=== PATIENT | male | born 1970 | race Asian ===

== ENCOUNTER 2020-12-20 18:04 | Emergency (ER) | payer OTHER, BC, SELFPAY ==
[2020-12-20 18:06] VITALS: BP 188/116; PULSE 82; RESP 16; TEMP 36.6; O2SAT 97; BMI 28.5
--- NOTE | 2020-12-20 18:08 | ED.RN ---
PT UNSURE IF HE WANTS TO FILE WORKMANS COMP AT THIS TIME.
--- NOTE | 2020-12-20 18:10 | ED.RN ---
PT REPORTS HE DOES WANT TO FILE WORKMAN'S COMP. 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 FROI INITIATED.
--- NOTE | 2020-12-20 18:18 | RAD_ITS ---
STUDY: X-RAY - RIGHT HAND REASON FOR EXAM: Male, 50 years old. Pain. Smashed distal middle finger. Bruising and swelling. TECHNIQUE: 3 view(s) of the hand. COMPARISON: None. FINDINGS: There is joint space narrowing of the radiocarpal articulation consistent with degenerative arthrosis. Normal distal radioulnar joint. Normal visualized carpal bones. 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 The remainder of the carpal articulations are normal. Normal carpometacarpal articulation of the thumb. Normal second through fifth carpometacarpal joints. Normal metacarpi. Normal metacarpophalangeal joint of the thumb. Normal interphalangeal joint of the thumb. Normal proximal and distal phalanges of the thumb. Normal metacarpophalangeal joints of the second through fifth fingers. Normal proximal and distal interphalangeal joints of the second through fifth fingers. Normal phalanges of the second through fifth fingers. Soft tissue swelling about the tip of third digit. There is a 4 mm rounded metallic foreign body in the soft tissues of the mid palm. RAD/Hand Min 3 Views IMPRESSION: 1. Soft tissue swelling about the distal third digit without fracture or subluxation. 2. Degenerative changes of the wrist. Electronically Signed: Amrit Oliveira DO at 19:03 EDT Tel [phone], Service support ,
--- NOTE | 2020-12-20 19:40 | EDS_ITS ---
HPI History of Present Illness Chief Complaint: Upper Extremity Injury Detail of Chief Complaint: Injury to right long finger while at work Informant: patient Narrative Narrative: Patient presents to the emergency department with a crush injury to the right long finger. Patient states that he was switching out him metal part when it crushed his finger. Patient is ambidextrous. PFSH PFSH Allergy/AdvReac Type Severity Reaction Status Date / Time No Known Allergies Allergy Verified 12/20/20 18:05 Social History Smoking Status: Unknown if ever smoked ROS ROS ED Constitutional Constitutional ED: Reports systems reviewed and no addt'l complaints, except as documented; Denies body ache(s), change in weight or chills Eyes Eyes: Denies acute decrease in peripheral vision, change in vision, double vision or loss of vision ENT ENT ED: Reports none; Denies ear pain, lip swelling, loss taste/smell, neck pain, otalgia or sore throat Cardiovascular Cardiovascular: Reports none; Denies abdominal pain, chest pain with activity, leg edema, lightheadedness, palpitations, rapid heart rate or syncope Respiratory/Chest Respiratory/Chest: Reports none; Denies change in mental status, dry cough, dyspnea, hemoptysis, shortness of breath at rest or shortness of breath with exertion Gastrointestinal Gastrointestinal: Reports none; Denies abdominal pain, change in stool character, diarrhea, hematemesis, hematochezia, melena, rectal bleeding or vomiting Genitourinary Genitourinary ED: Reports none; Denies abdominal discomfort, anuria, dysuria, genital pain or polyuria Musculoskeletal Musculoskeletal: Reports none and other Details: Injury to right long finger ; D enies arthralgias, back pain, difficulty walking, extremity pain, muscle weakness or myalgias Integumentary Reports none; Denies abscess or rash Neurologic Neurologic: Reports none; Denies abnormal gait, confusion, focal weakness, frequent falls, headache(s), loss of vision, numbness, paresthesias, radicular pain, vertigo or weakness Psychiatric Psychiatric: Reports systems reviewed and no addt'l complaints, except as documented and none; Denies behavioral changes, confusion, difficulty concentrating, hallucinations, suicidal ideation, tactile hallucinations or visual hallucinations Endocrine Endocrinology: Denies none, cold intolerance, excessive sweating, fatigue or heat intolerance Hematologic/Lymphatic Hematologic/Lymphatic: Reports none; Denies anemia, easy bleeding or easy bruising Allergic/Immunologic Allergic/Immunologic ED: Denies as per HPI, none, lip swelling, mouth swelling, throat swelling, tongue swelling or hives EXAM Physical Exam Const Vital Signs: 12/20/20 18:06 Temperature 97.9 F Temperature Source Temporal Pulse Rate 82 Respiratory Rate 16 Blood Pressure 188/116 H Blood Pressure Mean 140 Pulse Ox 97 Oxygen Delivery Method Room Air Positive well nourished and well developed General Appearance ED: well developed and NAD HEENT Reports TM's clear and moist mucous membranes normocephalic and atraumatic; Negative for trauma or tenderness Tympanic Membrane ED: Yes TM's clear Eyes PERRL and EOMs intact bilaterally General Eye ED: Negative for pale conjunctiva or scleral icterus Neck no lymphadenopathy, supple and no JVD General: Negative for tenderness Chest Wall inspection of chest normal and palpation of chest normal Chest: Negative for tenderness Resp normal respiratory effort and clear to auscultation bilaterally Effort and Inspection: Negative for respiratory distress or pain with movement Auscultation: Negative for rhonchi, wheezes or diminished lung sounds Cardio regular rate, regular rhythm, S1 normal heart sound, S2 normal heart sound and no murmurs Peripheral Pulses: pulses 2+ throughout GI normal to inspection, nondistended, normoactive bowel sounds, soft to palpation, non-tender, non-distended and no masses Back/Spine no CVA tenderness and no thoracic nor lumbar tenderness Extremity normal to inspection Extremity Narrative: Right long finger-patient has a subungual hematoma with tenderness over the distal phalanx. Neurovascular intact. No broken skin noted. General Extremety ED: Negative for edema General Extremity: Negative for edema Neuro oriented x3, CN's II-XII intact bilaterally, no sensory deficits noted and gait normal Sensorium / Orientation: awake, alert, oriented to person, oriented to place and oriented to time Motor Exam: strength 5/5 throughout and strength abnormal Psych mental status grossly normal Skin no rashes or lesions noted and no wounds MDM MDM MDM Narrative Medical decision making narrative: Patient was offered trephination of the subungual hematoma to which he agreed. Using high heat cautery I was able to easily trephinate his nail and large amount of dark blood was expressed from the wound. Patient had a clean dressing applied an aluminum splint given. He will be given work restrictions for work. X-rays did not show any fractures. Radiography Diagnostic Testing: Radiology Impression Hand X-Ray 12/20/20 18:18 IMPRESSION: 1. Soft tissue swelling about the distal third digit without fracture or subluxation. 2. Degenerative changes of the wrist. Electronically Signed: Amrit Oliveira DO at 19:03 EDT Tel [phone], Service support , Treatment and Re-Evaluation Comments:: Three-view x-rays of the right long finger obtained interpreted by myself as no acute fractures. Radiology in agreement. Discharge Plan Triage Chief Complaint: Upper Extremity Injury ED Provider: Nehemias Holguin Dx/Rx/DC Orders Clinical Impression: Crush injury to finger, Subungual hematoma Instructions: ED Crush Injury, Hand, ED Subungual Hematoma Primary Care Provider: Eduard Arias Referrals: [facility] [GROUP OF PHYSICIANS] - 3-5 Days Eduard Arias MD [Primary Care Provider] - Disposition Disposition: Home, Self Care
== END 2020-12-20 20:21 | disposition home or self-care (01) ==
LOC: ED 19:59
PROVIDERS: Emergency Provider Emergency Medicine; PCP Family Medicine
DX: S67.192A Crushing injury of right middle finger, initial encounter (principal); X58.XXXA Exposure to other specified factors, initial encounter
CPT/HCPCS: 73130; 99283

== ENCOUNTER 2020-12-22 17:41 | Emergency (ER) | payer OTHER, SELFPAY ==
[2020-12-22 17:41] VITALS: BP 162/104; PULSE 86; RESP 16; TEMP 36.6; BMI 25.8
--- NOTE | 2020-12-22 18:42 | EX.ED.UPPERE ---
HPI History of Present Illness Chief Complaint: Upper Extremity Injury Informant: patient Narrative Narrative: Ambidextrous male returns for evaluation of a crush injury right middle finger 2 days ago. X-rays negative, trephination for subungual hematoma. States he took the dressing off there was increased swelling. He tried to poke with a needle there is blood drainage. He does not take anticoagulation medications. Denies new injuries. [facility] had a similar injury back in May with a nail falling off and regrowing. PFSH PFSH Allergy/AdvReac Type Severity Reaction Status Date / Time No Known Allergies Allergy Verified 12/22/20 17:43 Social History Smoking Status: Unknown if ever smoked ROS ROS ED Constitutional Constitutional ED: Denies chills, fever(s) or sweats Eyes Eyes: Denies change in vision ENT ENT ED: Denies dysphagia or sore throat Cardiovascular Cardiovascular: Denies chest pain, leg edema, palpitations or racing heartbeat Respiratory/Chest Respiratory/Chest: Denies cough, dyspnea or dyspnea on exertion Gastrointestinal Gastrointestinal: Denies abdominal pain, diarrhea, nausea or vomiting Genitourinary Genitourinary ED: Denies dysuria, hematuria or urinary frequency Musculoskeletal Musculoskeletal: Denies back pain, extremity pain or neck pain Integumentary Reports other Details: Hematoma right middle finger ; Denies rash or wounds Neurologic Neurologic: Denies headache(s), paresthesias or weakness EXAM Physical Exam Const Vital Signs: 12/22/20 17:41 Temperature 97.9 F Temperature Source Temporal Pulse Rate 86 Respiratory Rate 16 Blood Pressure 162/104 H Blood Pressure Mean 123 Positive well nourished and well developed General Appearance ED: well developed and NAD HEENT Reports moist mucous membranes normocephalic and atraumatic Eyes PERRL, EOMs intact bilaterally and conjunctivae normal General Eye ED: Yes normal appearance of both eyes Neck no lymphadenopathy and supple General: Negative for tenderness Chest Wall Chest: Negative for tenderness Resp normal respiratory effort and normal air movement Effort and Inspection: symmetric chest movement; Negative for respiratory distress Cardio regular rate, regular rhythm and no murmurs Peripheral Pulses: pulses 2+ throughout GI normal to inspection, nondistended, normoactive bowel sounds and non-tender Palpation: Negative for guarding or rebound tenderness present Back/Spine no CVA tenderness and no thoracic nor lumbar tenderness Extremity Extremity Narrative: Right upper extremity middle finger: 100% subungual hematoma there was one trephination hole in the middle with no active drainage. There was a blood blister at the distal aspect of the phalanx dorsally there was a pinpoint opening with slow blood drainage. General Extremety ED: Negative for edema or tenderness General Extremity: Negative for edema Neuro oriented x3 and no sensory deficits noted Sensorium / Orientation: awake and alert Skin no rashes or lesions noted and no wounds MDM MDM MDM Narrative Medical decision making narrative: Reviewed patient imagings in the system negative for fracture. Patient presenting with blood blister proximal to the subungual hematoma. Area was cleansed with alcohol pad. 11 blade was used for 2 straight incisions with drainage and flattening of the blister. Evaluation there is an avulsion at the base of the nail lifting up proximally allowing for drainage in this region. Additional trephination with low heat cautery at the base of the nailbed with no additional drainage. There was no high heat cautery available at this time. Xeroform dressing by nursing of the wounds with finger pressure dressing. Cage splint provided for use afterwards. He understands he will lose his nail. He will follow-up as an outpatient. Discharge Plan Triage Chief Complaint: Upper Extremity Injury ED Provider: Keith Garg Dx/Rx/DC Orders Clinical Impression: Subungual hematoma, Avulsed fingernail, Blood blister Instructions: ED Blister (Adult), ED Detached Fingernail or Toenail, ED Subungual Hematoma Primary Care Provider: Eduard Arias Referrals: Eduard Arias MD [Primary Care Provider] - 1 Week Disposition Disposition: Home, Self Care
== END 2020-12-22 19:15 | disposition home or self-care (01) ==
PROVIDERS: Emergency Provider Emergency Medicine; PCP Family Medicine
DX: S61.302A Unspecified open wound of right middle finger with damage to nail, initial encounter (principal); X58.XXXA Exposure to other specified factors, initial encounter
CPT/HCPCS: 99283